=== PATIENT | female | born 1930 | race Caucasian/White ===

== ENCOUNTER → 2016-10-25 | Outpatient (CLI) | payer OTHER, MEDICAID | LOC: CIMAGING 10:43 | PROVIDERS: ATTEND Internal Medicine Cardiovascular Disease | DX: M79.606 Pain in leg, unspecified (principal); R59.9 Enlarged lymph nodes, unspecified | CPT/HCPCS: 93970-PO ==

== ENCOUNTER → 2016-11-05 | Outpatient (CLI) | payer OTHER, MEDICAID | LOC: CIMAGING 14:23 | PROVIDERS: ATTEND Internal Medicine Pulmonary Disease | DX: R06.02 Shortness of breath (principal); J84.10 Pulmonary fibrosis, unspecified; I51.7 Cardiomegaly; I25.10 Atherosclerotic heart disease of native coronary artery without angina pectoris | CPT/HCPCS: 71250-PO ==